=== PATIENT | male | born 1980 | race Caucasian/White ===

== ENCOUNTER → 2020-05-23 | Outpatient (CLI) | payer OTHER ==
--- NOTE | 2020-05-23 10:24 | Diagnostic Imaging Report ---
INDICATION: Abdominal pain for 5 months. Time of exam: 9:52 AM Upright and supine radiographs of the abdomen were obtained. No free air is identified. There are surgical clips in the gallbladder fossa. Bowel gas pattern is nonobstructed. There is moderate stool load throughout the colon suggestive of constipation. No pathologic calcifications are seen. IMPRESSION: Moderate stool suggestive of constipation. No other significant abnormality is detected. Dictated by: Dictated on workstation # [id number]
== END ==
LOC: RAD FS 09:30
PROVIDERS: ATTEND Nurse Practitioner Family
DX: K59.00 Constipation, unspecified (principal)
CPT/HCPCS: 74019